=== PATIENT | male | born 2000 | race Hispanic/Latino ===

== ENCOUNTER 2021-11-25 14:38 | Emergency (ER) | payer SELFPAY ==
[2021-11-25] MEDS ORDERED: Ketorolac Tromethamine 30 MG/ML VIAL ONE (16:09)
[2021-11-25] MEDS ORDERED: Acetaminophen 500 MG TAB ONE (16:26)
== END 2021-11-25 20:17 | disposition home or self-care (01) ==
LOC: ERS 14:38
DX: S83.92XA Sprain of unspecified site of left knee, initial encounter (principal); X50.0XXA Overexertion from strenuous movement or load, initial encounter
CPT/HCPCS: 96372; J1885